=== PATIENT | male | born 1965 | race Caucasian/White ===

== ENCOUNTER 2018-05-05 10:41 | Emergency (ER) | payer OTHER ==
[~2018-05-05] VITALS: Ht 185.4 cm; Wt 113.5 kg
[2018-05-05 10:55] VITALS: BP 111/80
[2018-05-05] MEDS ORDERED: LIDOcaine 1.5% w/epinephrine 1:200,000 5ml ampul IJ ONE (12:25)
== END 2018-05-05 13:27 | disposition home or self-care (01) ==
LOC: ER 10:41
DX: S61.512A Laceration without foreign body of left wrist, initial encounter (principal); W26.9XXA Contact with unspecified sharp object(s), initial encounter; Y93.89 Activity, other specified; Y92.89 Other specified places as the place of occurrence of the external cause; Y99.8 Other external cause status
CPT/HCPCS: 12002; 99283; A6255; A6449; J3490